=== PATIENT | male | born 1990 | race Caucasian/White ===

== ENCOUNTER 2017-04-25 18:11 | Emergency (ER) | payer BC ==
[2017-04-25 18:40] VITALS: TEMP 97.9
[2017-04-25] MEDS ORDERED: PROPARACAINE 0.5% 15 ML OPHT DROP OP ONE (19:16)
--- NOTE | 2017-04-25 20:27 | EDPHY ---
H & P Time Seen by Provider: 04/25/17 20:12 HPI/ROS: CHIEF COMPLAINT: Eye irritation HISTORY OF PRESENT ILLNESS: The patient is a 27 y/o male complaining of eye irritation. He was sanding wood at work when he developed irritation in his right eye, around 2:00PM 6 hours ago. He washed his eye with water and the pain decreased somewhat, but still persists. He has associated redness, discharge, and swelling from the left eye. No visual change. He denies wearing contacts. Past Medical/Surgical History: Denies Social History: Lives in [place], from [place], employed Smoking Status: Never smoked Physical Exam: Lids: no proptosis, no periorbital erythema or swelling, no vesicles; lid everted, no foreign body Conjunctivae: Erythema, thick yellowish drainage Pupils: equal round and reactive to light EOMI Cornea: Normal, no fluorescein uptake Anterior chamber: Clear, no hyphema Constitutional: Initial Vital Signs Temperature (C) 36.6 C 04/25/17 18:38 Heart Rate 67 04/25/17 18:38 Respiratory Rate 16 04/25/17 18:38 Blood Pressure 114/65 04/25/17 18:38 O2 Sat (%) 96 04/25/17 18:38 O2 Delivery Mode Room Air Allergies/Adverse Reactions: No Known Allergies Allergy (Unverified 04/25/17 18:38) Home Medications: Medication Instructions Recorded Ofloxacin 0.3% [Ocuflox 0.3%] 2 drops OP QID #1 opht.[email or web address] 04/25/17 Medical Decision Making ED Course/Re-evaluation: The patient is a 27 y/o male complaining of eye irritation after sanding wood at work this afternoon. He has associated erythema, swelling, and discharge from his left eye. Lid everted and no foreign body identified. He does not have fluorescein uptake. Likely foreign body, now resolved. Antibiotics and follow up with ophthalmology if pain persists for more than 24 hr. He agrees to this plan. Differential Diagnosis: Differential diagnosis includes conjunctivitis, corneal abrasion, retained foreign body, hyphema, acute iritis, traumatic mydriasis, corneal abrasion, globe rupture. - Data Points Medications Given: Discontinued Medications Proparacaine HCl (Alcaine 0.5%) 2 drops OP EDNOW ONE Stop: 11/29/17 19:17 Last Admin: 04/25/17 20:30 Dose: 1 drop Departure - Departure Disposition: Home, Routine, Self-Care Clinical Impression: eye foreign body, resolved Conjunctivitis Qualifiers: Conjunctivitis type: acute Acute conjunctivitis type: unspecified Laterality: left Qualified Code(s): H10.32 - Unspecified acute conjunctivitis, left eye Condition: Good Instructions: Conjunctivitis (ED) Additional Instructions: 1. Take prescriptions as directed. 2. Follow-up with Dr. Florentino Bonilla, ophthalmology, in 1 day for continued discomfort. 3. Return to the ED for visual change, increasing pain or other worsening of condition. Referrals: Florentino Bonilla MD [Medical Doctor] - As per Instructions Prescriptions: Ofloxacin 0.3% [Ocuflox 0.3%] 2 drops OP QID #1 opht.btl Report Scribed for: Deysi Miller Report Scribed by: Cheyenne Stein Date of Report: 04/25/17 Time of Report: 20:18 Physician Review and Approval Statement: 04/25/17 20:18 Portions of this note were transcribed by a medical numerical control operator. I personally performed a history, physical exam, medical decision making, and confirmed accuracy of information the transcribed note.
[2017-04-25] MEDS ORDERED: FLUORESCEIN SODIUM 1 MG STRIP OP ONE (20:31)
[2017-04-25 20:55] VITALS: BP 128/64; PULSE 68; RESP 18; O2SAT 94
== END 2017-04-25 21:08 | disposition home or self-care (01) ==
DX: T15.11XA Foreign body in conjunctival sac, right eye, initial encounter (principal); H10.32 Unspecified acute conjunctivitis, left eye; X58.XXXA Exposure to other specified factors, initial encounter; Y92.69 Other specified industrial and construction area as the place of occurrence of the external cause; Y99.8 Other external cause status; Y93.89 Activity, other specified